=== PATIENT | male | born 1985 | race Caucasian/White ===

== ENCOUNTER 2019-08-25 14:26 | Emergency (ER) | payer OTHER ==
[~2019-08-25] VITALS: Ht 175.3 cm; Wt 72.6 kg
[2019-08-25 15:10] VITALS: BP 128/81
== END 2019-08-25 15:11 | disposition home or self-care (01) ==
LOC: EDBD 14:26 → M.ERS 14:26
DX: L02.413 Cutaneous abscess of right upper limb (principal)